=== PATIENT | male | born 1980 | race Caucasian/White ===

== ENCOUNTER 2016-11-09 10:55 | Inpatient (IN) | payer OTHER ==
[~2016-11-09] VITALS: Ht 167.6 cm; Wt 65.8 kg
[2016-11-09 12:00] VITALS: BP 116/67
[2016-11-09 13:07] LABS: BILIRUBIN NEGATIVE (NEGATIVE); BLOOD NEGATIVE (NEGATIVE); CLARITY CLEAR (CLEAR); COLOR YELLOW (YELLOW); GLUCOSE NEGATIVE (NEGATIVE); KETONE NEGATIVE (NEGATIVE); LEUKO ESTERASE NEGATIVE (NEGATIVE); NITRITE NEGATIVE (NEGATIVE); PH 5.5 (5.0-9.0); PROTEIN NEGATIVE (NEGATIVE); SPECIFIC GRAVITY >= 1.030 (1.005-1.030)
[2016-11-09 13:07] LABS: BASO % 0.2 % (0.0-1.0); EOS # 0.2 10*3/uL (0.0-0.4); EOS % 2.1 % (1.0-4.0); HEMOGLOBIN 13.6 g/dl (14.0-18.0); IG # 0.1 10*3/uL (0.0-0.1); LYMPH # 1.5 10*3/uL (1.3-4.4); LYMPH % 13.2 % (27.0-41.0); MEAN CELL VOLUME 88.4 fl (80.0-94.0); MEAN CORPUSCULAR HGB 28.6 pg (27.0-31.0); MEAN CORPUSCULAR HGB CONC 32.4 g/dl (33.0-37.0); MEAN PLATELET VOLUME 9.1 fl (9.6-12.3); MONO # 0.8 10*3/uL (0.1-1.0); MONO % 7.1 % (3.0-9.0); NEUT # 8.9 10*3/uL (2.3-7.9); NEUT % 76.9 % (47.0-73.0); PLATELET COUNT AUTOMATED 241 10*3/uL (130-400); RED BLOOD COUNT 4.75 10*6/uL (4.50-5.90); RED CELL DISTRI WIDTH 14.2 % (0-14.5); WHITE BLOOD COUNT 11.6 10*3/uL (4.8-10.8)
[2016-11-09 13:14] LABS: PROTHROMBIN TIME 10.7 SECONDS (9.0-12.4)
[2016-11-09 13:15] LABS: EPITHELIAL CELLS 0-2; URINE REFLEX COMMENT NO (NO)
[2016-11-09 13:21] LABS: ALBUMIN 3.7 gm/dl (3.1-4.5); ALKALINE PHOSPHATASE 65 U/L (45-117); BILIRUBIN, TOTAL 0.2 mg/dl (0.2-1.0); BUN 17 mg/dl (7-24); CARBON DIOXIDE 27 mmol/L (21-32); CHLORIDE 105 mmol/L (98-107); EST GLOM FILT AFRICAN AMERICAN > 60 ml/min; GLUCOSE 79 mg/dL (65-99); POTASSIUM 4.2 mmol/L (3.5-5.1); SGOT/AST 16 IU/L (3-35); SGPT/ALT 28 U/L (12-78); SODIUM 140 mmol/L (136-145); TOTAL PROTEIN 7.3 gm/dL (6.4-8.2)
[2016-11-09 14:15] LABS: URINE AMPHETAMINES < 1000 (1000ng/ml); URINE BARBITURATES < 200 (200ng/ml); URINE COCAINE > 300 (300ng/ml)
[2016-11-09 16:00] VITALS: BP 118/70
[2016-11-09 20:00] VITALS: BP 114/63
[2016-11-10] VITALS: BP 105/63
[2016-11-10 04:00] VITALS: BP 110/65
[2016-11-10 08:00] VITALS: BP 91/50
[2016-11-10 12:00] VITALS: BP 108/63
[2016-11-10 16:00] VITALS: BP 96/55
[2016-11-10 20:00] VITALS: BP 121/61
[2016-11-11 08:00] VITALS: BP 99/63
[2016-11-11 16:00] VITALS: BP 105/57
[2016-11-12] VITALS: BP 98/58
[2016-11-12 09:42] VITALS: BP 113/53
[2016-11-12] MEDS ORDERED: ATARAX,VISTARIL50 MG PO (10:14)
[2016-11-12] MEDS ORDERED: ZOFRAN4 MG PO (10:14)
[2016-11-12] MEDS ORDERED: REMERON30 M1 PO (10:24)
[2016-11-12] MEDS ORDERED: PEPCID40 MG PO (10:24)
[2016-11-12] MEDS ORDERED: CLINDAMYCIN HC300 MG PO (10:24)
== END 2016-11-12 10:55 | disposition home or self-care (01) | DRG 897 ==
LOC: 4E 10:55
PROVIDERS: Internal Medicine
DX: F11.23 Opioid dependence with withdrawal (principal); S81.819A Laceration without foreign body, unspecified lower leg, initial encounter; F14.10 Cocaine abuse, uncomplicated; F41.9 Anxiety disorder, unspecified; W11.XXXA Fall on and from ladder, initial encounter; L08.9 Local infection of the skin and subcutaneous tissue, unspecified; F17.200 Nicotine dependence, unspecified, uncomplicated; Z80.0 Family history of malignant neoplasm of digestive organs; Z91.030 Bee allergy status; Y93.89 Activity, other specified; Y92.89 Other specified places as the place of occurrence of the external cause; Y99.8 Other external cause status

== ENCOUNTER 2017-07-12 09:09 | Inpatient (IN) | payer OTHER ==
[~2017-07-12] VITALS: Ht 167.6 cm; Wt 70.8 kg
[~2017-07-12 09:09] MED LIST: ATARAX,VISTARIL50 MG PO; CLINDAMYCIN HC300 MG PO; PEPCID40 MG PO; REMERON30 M1 PO; ZOFRAN4 MG PO
[2017-07-12 10:10] VITALS: BP 115/67
[2017-07-12 11:47] LABS: BASO # 0.1 10*3/uL (0.0-0.1); BASO % 0.5 % (0.0-1.0); EOS # 0.3 10*3/uL (0.0-0.4); EOS % 2.6 % (1.0-4.0); HEMATOCRIT 43.3 % (42.0-52.0); HEMOGLOBIN 14.3 g/dl (14.0-18.0); LYMPH # 2.3 10*3/uL (1.3-4.4); LYMPH % 22.1 % (27.0-41.0); MEAN CELL VOLUME 91.9 fl (80.0-94.0); MEAN CORPUSCULAR HGB 30.4 pg (27.0-31.0); MEAN PLATELET VOLUME 9.1 fl (9.6-12.3); MONO % 9.3 % (3.0-9.0); NEUT # 6.6 10*3/uL (2.3-7.9); NEUT % 64.7 % (47.0-73.0); PLATELET COUNT AUTOMATED 256 10*3/uL (130-400); RED BLOOD COUNT 4.71 10*6/uL (4.50-5.90); RED CELL DISTRI WIDTH 12.7 % (0-14.5); WHITE BLOOD COUNT 10.2 10*3/uL (4.8-10.8)
[2017-07-12 12:00] VITALS: BP 115/67
[2017-07-12 12:02] LABS: ALBUMIN 3.4 gm/dl (3.1-4.5); ALKALINE PHOSPHATASE 47 U/L (45-117); BUN 24 mg/dl (7-24); CHLORIDE 105 mmol/L (98-107); CREATININE 0.98 mg/dL (0.70-1.30); POTASSIUM 4.9 mmol/L (3.5-5.1); SGOT/AST 22 IU/L (3-35); SGPT/ALT 46 U/L (12-78); SODIUM 139 mmol/L (136-145); TOTAL PROTEIN 7.1 gm/dL (6.4-8.2)
[2017-07-12 12:08] LABS: BILIRUBIN NEGATIVE (NEGATIVE); BLOOD NEGATIVE (NEGATIVE); CLARITY CLEAR (CLEAR); COLOR YELLOW (YELLOW); GLUCOSE NEGATIVE (NEGATIVE); KETONE NEGATIVE (NEGATIVE); LEUKO ESTERASE NEGATIVE (NEGATIVE); NITRITE NEGATIVE (NEGATIVE); PH 6.5 (5.0-9.0)
[2017-07-12 12:15] LABS: URINE AMPHETAMINES < 1000 (1000ng/ml); URINE BARBITURATES < 200 (200ng/ml); URINE BENZODIAZEPINES < 200 (200ng/ml); URINE CANNABINOIDS (THC) < 50 (50ng/ml); URINE COCAINE > 300 (300ng/ml); URINE METHADONE < 300 (300ng/ml); URINE OPIATES > 300 (300ng/ml)
[2017-07-12 12:15] LABS: ETHYL ALCOHOL < 3.0 mg/dl (<3)
[2017-07-12 12:16] LABS: URINE PHENCYCLIDINE < 25 (25ng/ml)
[2017-07-12 12:28] LABS: BACTERIA 1+; MUCOUS 1+
[2017-07-12 16:00] VITALS: BP 106/62
[2017-07-12 20:00] VITALS: BP 111/65
[2017-07-13] VITALS: BP 100/57
[2017-07-13 04:00] VITALS: BP 105/62
[2017-07-13 08:00] VITALS: BP 89/50
[2017-07-13 12:00] VITALS: BP 101/62
[2017-07-13 16:00] VITALS: BP 114/65
[2017-07-13 20:00] VITALS: BP 122/65
[2017-07-14] VITALS: BP 109/61
[2017-07-14 08:00] VITALS: BP 103/63
[2017-07-14] MEDS ORDERED: ZOFRAN 4 MG ED2 TAB PO (08:53)
[2017-07-14] MEDS ORDERED: METHOCARBAMOL750 M1 PO (08:53)
[2017-07-14] MEDS ORDERED: ATARAX,VISTARIL50 MG PO (08:53)
[2017-07-14 12:00] VITALS: BP 113/65
[2017-07-14 16:00] VITALS: BP 112/66
[2017-07-14 20:00] VITALS: BP 116/70
[2017-07-15] VITALS: BP 102/55
[2017-07-15 08:00] VITALS: BP 87/59
== END 2017-07-15 10:10 | disposition home or self-care (01) | DRG 897 ==
LOC: 5E 09:09
PROVIDERS: Internal Medicine; Registered Nurse
DX: F11.23 Opioid dependence with withdrawal (principal); B19.20 Unspecified viral hepatitis C without hepatic coma; F14.90 Cocaine use, unspecified, uncomplicated; F41.9 Anxiety disorder, unspecified; G25.81 Restless legs syndrome; Z72.0 Tobacco use; Z80.0 Family history of malignant neoplasm of digestive organs; Z91.030 Bee allergy status; Z71.6 Tobacco abuse counseling; Z71.89 Other specified counseling